=== PATIENT | female | born 1990 | race American Indian/Alaskan Native ===

== ENCOUNTER 2020-03-30 15:10 | Emergency (ER) | payer MEDICAID ==
[2020-03-30] MEDS ORDERED: LACTATED RINGERS 1,000 ML IV ONE (15:50)
--- NOTE | 2020-03-30 15:51 | Emergency Department Report ---
ED General Adult HPI - General Chief complaint: Anxiety Stated complaint: weak PUI?: No Time Seen by Provider: 03/30/20 15:40 Source: patient, EMS ( EMS documentation not available at time of chart dictation ), RN notes reviewed Mode of arrival: Stretcher Limitations: No Limitations - History of Present Illness Initial comments: The patient was evaluated in the emergency department for symptoms described in the history of present illness. He/she was evaluated in the context of the global COVID-19 pandemic, which necessitated consideration that the patient might be at risk for infection with the virus that causes COVID-19. Institutional protocols and algorithms that pertain to the evaluation of patients at risk for COVID-19 are in a state of rapid change based on information released by regulatory bodies including the CDC and federal and state organizations. These policies and algorithms were followed during the jazmín rico's care in the emergency department. Please note that these policies, procedures and recommendations changed on a rapid basis. During the history and physical examination, I am chaperoned by nurse Kavitha Bernal The patient is a 30-year-old female. She is not known to myself previously. She appears to have a history of obesity. Otherwise, she denies chronic medical conditions. She states that she is not , and that she has not delivered her given in the past 6 weeks. The patient is brought to the hospital today by emergency medical services. History obtained from the patient, as well as from paramedics, who supplied additional history. The patient herself states that she was "feeling fine", reports that she "got into an argument." As per game manager who is currently taking care of her, Patient reportedly got into an argument before arriving to the hospital, and th en appeared to have nontraumatic convulsive activity, may have had a few shots of alcohol, which lasted for a few seconds to half a minute, and was terminated with Ativan. The patient herself states that she does not have a history of seizure. The patient denies headache, neck pain, chest pain, abdominal pain, shortness of breath. The patient states that she is not homicidal suicidal. The patient states that she has not tried to overdose on anything. The patient states she has no urinary symptoms, that she does not have access to guns or to firearms, that she has a safe place to go home to. Her symptoms are basically resolved at this time, with the exception of mild anxiety. She denies leg pain, leg swelling, travel, surgery, oral contraceptive use. -: Sudden Consistency: now resolved Improves with: medication Worsens with: none Associated Symptoms: denies other symptoms - Related Data Allergies Allergy/AdvReac Type Severity Reaction Status Date / Time amoxicillin Allergy Rash Verified 03/30/20 15:28 ED Review of Systems ROS: Stated complaint: SEIZURE Other details as noted in HPI Constitutional: other (Denies loss of taste and smell). denies: fever Eyes: denies: eye discharge ENT: denies: epistaxis Respiratory: denies: cough, shortness of breath Cardiovascular: denies: chest pain, syncope Gastrointestinal: denies: abdominal pain, nausea, vomiting, constipation Genitourinary: denies: dysuria Musculoskeletal: denies: back pain Neurological: weakness (Global weakness). denies: headache Psychiatric: anxiety. denies: auditory hallucinations, visual hallucinations, homicidal thoughts, suicidal thoughts ED Past Medical Hx - Past Medical History Hx Hypertension: Yes (during ) - Surgical History Additional Surgical History: C sect x 2, cyst removal from arm - Social History Smoking Status: Never Smoker Substance Use Type: Alcohol ED Physical Exam - General Limitations: No Limitations General appearance: alert, anxious, obese - Head Head exam: Present: atraumatic, normocephalic - Eye Eye exam: Present: normal appearance, PERRL, EOMI, other (Visual acuity intact to finger counting, color perception, reading at a close distance). Absent: nystagmus - ENT ENT exam: Present: normal exam, normal orophraynx, mucous membranes moist, normal external ear exam - Neck Neck exam: Present: normal inspection, full ROM. Absent: tenderness, meningismus - Respiratory Respiratory exam: Present: normal lung sounds bilaterally. Absent: respiratory distress, wheezes, rales, rhonchi, stridor, decreased breath sounds - Cardiovascular Cardiovascular Exam: Present: regular rate, normal rhythm, normal heart sounds. Absent: bradycardia, tachycardia, irregular rhythm, systolic murmur, diastolic murmur, rubs, gallop - GI/Abdominal GI/Abdominal exam: Present: soft. Absent: distended, tenderness, guarding, rebound, rigid, pulsatile mass - Extremities Exam Extremities exam: Present: normal inspection, full ROM, other (2+ pulses noted in the bilateral upper and lower extremities. There is no palpable cord. negative Homans sign. Muscular compartments are soft. The pelvis is stable.). Absent: pedal edema, calf tenderness - Back Exam Back exam: Present: normal inspection, full ROM. Absent: tenderness, CVA tenderness (R), CVA tenderness (L), paraspinal tenderness, vertebral tenderness - Neurological Exam Neurological exam: Present: alert, oriented X3 (Able to and 4+4, subtract 200- 7), other (No facial droop. Tongue midline. Extraocular movements intact bilaterally. Facial sensation intact to light touch in V1, V2, V3 distribution bilaterally. 5 and a 5 strength in 4 extremities. Sensation intact to light touch in 4 extremities.). Absent: motor sensory deficit - Psychiatric Psychiatric exam: Present: anxious. Absent: homicidal ideation, suicidal ideation - Skin Skin exam: Present: warm, dry, intact, normal color. Absent: rash ED Course Vital Signs 03/30/20 03/30/20 15:28 18:01 Temperature 98.1 F 98.3 F Pulse Rate 109 H 92 H Respiratory 18 20 Rate Blood Pressure 130/88 Blood Pressure 132/82 [Left] O2 Sat by Pulse 97 98 Oximetry - Reevaluation(s) Reevaluation #1: 03/30/20 15:56 Differential diagnosis, included but not limited to: Seizure, pseudoseizure, conversion disorder, alcohol intoxication, electrolyte derangement, closed head injury Assessment and plan: 30-year-old female, who is currently afebrile, with reassuring vital signs, clinically sober, with a GCS of 15, no midline cervical spine pain, tenderness or step-offs, with complaint of "I am feeling fine", with prehospital history of possibly getting into an argument, and having a nonspecific convulsive event. Place patient on secured entrance monitor. Obtain EKG, appropriate laboratory studies. Repeat vital signs, and obtain EKG. Start IV fluids. Obtain CT scan of the brain. Reassess after initial data points. Patient is amenable to this plan of care. She denies urinary symptoms. She is not homicidal suicidal, she is alert and oriented, sober, and exhibits decision-making capacity at this time. Patient also states that she has a safe place to go home to, that she does not feel physically threatened, or verbally threatened Reevaluation #2: 03/30/20 18:05 Patient observed in this department for hours without clinical decompensation. Her tachycardia has resolved. Her objective laboratory testing is fairly unremarkable, has minimal elevation of blood alcohol level, but is clinically sober. Patient has friends/family coming by to pick her up. Noncontrast CT scan of the brain is negative for acute findings. Patient observed in this department for hours without acute event. Suitable to follow-up with an outpatient primary care doctor ED Medical Decision Making - Lab Data Result diagrams: 03/30/20 16:49 03/30/20 16:49 Vital Signs 03/30/20 15:28 Temperature 98.1 F Pulse Rate 109 H Respiratory 18 Rate Blood Pressure 130/88 O2 Sat by Pulse 97 Oximetry Lab Results 03/30/20 03/30/20 03/30/20 Range/Units 16:49 16:49 16:49 Hgb 14.6 H (10.1-14.3) gm/dl Hct 41.6 (30.3-42.9) % Plt Count 290 (140-440) K/mm3 Sodium 138 (137-145) mmol/L Potassium 4.1 (3.6-5.0) mmol/L Chloride 100.9 (98-107) mmol/L Carbon Dioxide 25 (22-30) mmol/L Anion Gap 16 mmol/L BUN 4 L (7-17) mg/dL Creatinine 0.6 (0.6-1.2) mg/dL Estimated GFR > 60 ml/min BUN/Creatinine Ratio 7 % Glucose 82 (65-100) mg/dL Calcium 9.4 (8.4-10.2) mg/dL Magnesium 2.10 (1.7-2.3) mg/dL Total Creatine Kinase 90 (30-135) units/L TSH 0.713 (0.270-4.200) mlU/mL HCG, Quant (0-4) mIU/mL Salicylates (2.8-20.0) mg/dL Acetaminophen (10.0-30.0) ug/mL Plasma/Serum Alcohol (0-0.07) % 03/30/20 03/30/20 03/30/20 Range/Units 16:49 16:49 16:49 Hgb (10.1-14.3) gm/dl Hct (30.3-42.9) % Plt Count (140-440) K/mm3 Sodium (137-145) mmol/L Potassium (3.6-5.0) mmol/L Chloride (98-107) mmol/L Carbon Dioxide (22-30) mmol/L Anion Gap mmol/L BUN (7-17) mg/dL Creatinine (0.6-1.2) mg/dL Estimated GFR ml/min BUN/Creatinine Ratio % Glucose (65-100) mg/dL Calcium (8.4-10.2) mg/dL Magnesium (1.7-2.3) mg/dL Total Creatine Kinase (30-135) units/L TSH (0.270-4.200) mlU/mL HCG, Quant < 2 (0-4) mIU/mL Salicylates < 0.3 L (2.8-20.0) mg/dL Acetaminophen 5.0 L (10.0-30.0) ug/mL Plasma/Serum Alcohol (0-0.07) % 03/30/20 Range/Units 16:49 Hgb (10.1-14.3) gm/dl Hct (30.3-42.9) % Plt Count (140-440) K/mm3 Sodium (137-145) mmol/L Potassium (3.6-5.0) mmol/L Chloride (98-107) mmol/L Carbon Dioxide (22-30) mmol/L Anion Gap mmol/L BUN (7-17) mg/dL Creatinine (0.6-1.2) mg/dL Estimated GFR ml/min BUN/Creatinine Ratio % Glucose (65-100) mg/dL Calcium (8.4-10.2) mg/dL Magnesium (1.7-2.3) mg/dL Total Creatine Kinase (30-135) units/L TSH (0.270-4.200) mlU/mL HCG, Quant (0-4) mIU/mL Salicylates (2.8-20.0) mg/dL Acetaminophen (10.0-30.0) ug/mL Plasma/Serum Alcohol 0.11 H (0-0.07) % Vital Signs 03/30/20 03/30/20 15:28 18:01 Temperature 98.1 F 98.3 F Pulse Rate 109 H 92 H Respiratory 18 20 Rate Blood Pressure 130/88 Blood Pressure 132/82 [Left] O2 Sat by Pulse 97 98 Oximetry - EKG Data -: EKG Interpreted by Ca EKG shows normal: sinus rhythm Rate: tachycardia - EKG Data When compared to previous EKG there are: previous EKG unavailable 03/30/20 17:00 Sinus rhythm, tachycardia, 104 bpm. QTC prolonged, 481 ms. Q waves noted in 1 and aVL. There is minimal motion artifact. This is an abnormal EKG. This is not a STEMI. - Radiology Data Radiology results: pending, report reviewed, image reviewed Noncontrast CT scan of the brain is negative for acute finding Critical care attestation.: If time is entered above; I have spent that time in minutes in the direct care of this critically ill patient, excluding procedure time. ED Disposition Clinical Impression: History of convulsions, General medical exam, Alcohol use Disposition: - TO HOME OR SELFCARE Is pt being admited?: No Does the pt Need Aspirin: No Condition: Good Additional Instructions: Recommend that patient not drive or operate motor vehicles for the next 6 months, or until cleared to do so by her primary care doctor or neurologist. We recommend follow-up with a primary care doctor or neurologist within the next 3 to 5 days. Recommend that patient avoid consumption of alcohol, and recreational drug/smoke products. Recommend that patient take a multivitamin daily [id number]. Please return to the emergency room right away with new pain, worsening pain, migration of pain, projectile vomiting, change in mental status, confusion, inability to tolerate liquid feeds, new, worsened or different symptoms not p resent on the initial emergency room evaluation. Dr. Matthews is a local primary care doctor. Local neurology specialists include the following physicians: Aspen Ferguson Referrals: ADRIEN MATTHEWS MD [Staff Physician] - 3-5 Days GENTRY DICKSON MD [Staff Physician] - 3-5 Days MICHAEL JENSEN MD [Referring] - 3-5 Days
--- NOTE | 2020-03-30 16:42 | Cat Scan Report ---
NONENHANCED CT SCAN OF THE HEAD: INDICATION / CLINICAL INFORMATION: 30 years Female; convulsion. TECHNIQUE: Routine CT head without contrast. All CT scans at this location are performed using CT dos e reduction for ALARA by means of automated exposure control. COMPARISON: None. FINDINGS: BRAIN / INTRACRANIAL CONTENTS: No acute hemorrhage, mass effect, midline shift, hydrocephalus, or acu te, large territorial infarct. No chronic infarct are encephalomalacia; conflicting dates, moderate v olume loss in the frontal and parietal convexity and in the cerebellar vermis; mammillary bodies not seen; Temporal lobes normal; hippocampi normal CRANIOCERVICAL JUNCTION: No significant abnormality. ORBITS: No significant abnormality of visualized orbits. SINUSES / MASTOIDS: No significant abnormality of the visualized paranasal sinuses or mastoid air georges ls. ADDITIONAL FINDINGS: None. IMPRESSION: No focal mass, hemorrhage, hydrocephalus, or acute, large territorial infarct. Signer Name: Brianna Cuadra MD Signed: 03/30/2020 4:38 PM Workstation Name: [id number]
[2020-03-30 17:05] LABS: Hematocrit 41.6 % (30.3-42.9); Hemoglobin 14.6 gm/dl (10.1-14.3)
[2020-03-30 17:28] LABS: Blood Urea Nitrogen 4 mg/dL (7-17); Calcium 9.4 mg/dL (8.4-10.2); Hemolysis Index 3
[2020-03-30 17:29] LABS: BUN/Creatinine Ratio 7
[2020-03-30 18:23] VITALS: BP 140/87
== END 2020-03-30 18:23 | disposition home or self-care (01) ==
LOC: ED 15:10
DX: R56.9 Unspecified convulsions (principal); Z72.89 Other problems related to lifestyle; Z00.00 Encounter for general adult medical examination without abnormal findings; I10 Essential (primary) hypertension; Z98.890 Other specified postprocedural states; Z88.1 Allergy status to other antibiotic agents
CPT/HCPCS: 36415; 70450; 80048; 80320; 82550; 83735; 84443; 84702; 85014; 85018; 85049; 93005; 96360; 96361; G0480

== ENCOUNTER 2020-04-26 14:45 | Emergency (ER) | payer MEDICAID ==
[2020-04-26 15:43] LABS: Basophils % (Auto) 0.4 % (0.0-1.8); Hematocrit 36.2 % (30.3-42.9); Hemoglobin 12.8 gm/dl (10.1-14.3); Lymphocytes # (Auto) 0.6 K/mm3 (1.2-5.4); Mean Corpuscular HGB Conc 35 % (30-34); Mean Corpuscular Volume 94 fl (79-97); Monocytes # (Auto) 0.5 K/mm3 (0.0-0.8); Monocytes % (Auto) 8.8 % (0.0-7.3); Platelet Count 202 K/mm3 (140-440); Red Blood Count 3.84 M/mm3 (3.65-5.03); Red Cell Distribution Width 12.7 % (13.2-15.2)
[2020-04-26] MEDS ORDERED: ACETAMINOPHEN 500 MG TAB PO ONE (15:47)
[2020-04-26] MEDS ORDERED: SODIUM CHLORIDE 0.9% 1000 ML 1,000 ML IV ONE (15:47)
[2020-04-26] MEDS ORDERED: MORPHINE 2 MG/1 ML INJ IV ONE (15:47)
[2020-04-26 16:01] LABS: Alanine Aminotransferase 9 units/L (7-56); Albumin 4.2 g/dL (3.9-5); Blood Urea Nitrogen 5 mg/dL (7-17); Calcium 8.5 mg/dL (8.4-10.2); Hemolysis Index 19
[2020-04-26 16:06] LABS: BUN/Creatinine Ratio 7
--- NOTE | 2020-04-26 16:07 | XRay Report ---
CHEST 2 VIEWS INDICATION / CLINICAL INFORMATION: shortness of breath. COMPARISON: None available. FINDINGS: SUPPORT DEVICES: None. HEART / MEDIASTINUM: No significant abnormality. LUNGS / PLEURA: No significant pulmonary or pleural abnormality. No pneumothorax. ADDITIONAL FINDINGS: No significant additional findings. IMPRESSION: 1. No acute findings. Signer Name: Negrito Rahman MD Signed: 04/26/2020 4:02 PM Workstation Name: [id number]
--- NOTE | 2020-04-26 17:12 | Cat Scan Report ---
CTA CHEST WITH CONTRAST INDICATION / CLINICAL INFORMATION: Back pain. TECHNIQUE: Axial CT images were obtained through the chest after injection of IV contrast. 3 plane [place] P and/or 3D reconstructions were produced. All CT scans at this location are performed using CT dose reduction for ALARA by means of automated exposure control. COMPARISON: None available. FINDINGS: PULMONARY ARTERIES: No central or segmental pulmonary embolus. THORACIC AORTA: No significant abnormality. HEART: No significant abnormality. ADENOPATHY: No significant adenopathy. LUNGS/PLEURA: No focal airspace consolidation. No pleural effusion. No pneumothorax. ADDITIONAL FINDINGS: None. UPPER ABDOMEN: Cholelithiasis and/or sludge. No evidence of cholecystitis. There are no acute finding s of the upper abdomen. SKELETAL STRUCTURES: No significant osseous abnormality. IMPRESSION: No acute findings in the chest. No evidence of pulmonary embolus. Signer Name: Brian Glez MD Signed: 04/26/2020 5:07 PM Workstation Name: [id number]
--- NOTE | 2020-04-26 17:27 | Emergency Department Report ---
- General Chief Complaint: Dyspnea/Respdistress Stated Complaint: BACK PAIN Time Seen by Provider: 04/26/20 15:41 Source: patient Mode of arrival: Ambulatory Limitations: No Limitations - History of Present Illness Initial Comments: This is a 30-year-old female nontoxic, well nourished in appearance, no acute signs of distress presents to the ED with c/o of productive cough, fever, chills, body aches, mid back pain, shortness of breath, rhinorrhea, nasal congestion x several days. Back worse with cough but resolved with rest. Patient describes productive cough as yellow mucus production. Patient denies any sick contact. Patient denies any recent travels, long car, recent hospital stays. Patient denies any calf pain or calf tenderness. Patient denies any chest pain, nausea, vomiting, hemoptysis, numbness, tingling, headache or stiff neck. Patient stated allergies amoxicillin. Denies any significant past medical history. MD Complaint: fever, cough, rhinorrhea, nasal congestion -: days(s) Severity: mild Severity scale (0 -10): 0 Consistency: constant Improves With: rest Worsens With: activity, deep breaths Associated Symptoms: fever, chills, rhinorrhea, nasal congestion, cough, shortness of breath. denies: myalgias, diaphoresis, headache, sore throat, stiff neck, chest pain, abdominal pain, nausea, vomiting, diarrhea, dysuria, rash, right sweats, weight loss, epistaxis, hoarseness, ear pain Treatments Prior to Arrival: none - Related Data Previous Rx's Medication Instructions Recorded Last Taken Type Acetaminophen [Acetaminophen 8 650 mg PO Q8H PRN #20 tablet.er 04/26/20 Unknown Rx Hour] Azithromycin [Zithromax Z-OPAL] 250 mg PO DAILY #6 tablet 04/26/20 Unknown Rx Benzonatate [Tessalon Perles] 100 mg PO Q8HR PRN #12 capsule 04/26/20 Unknown Rx Allergies Allergy/AdvReac Type Severity Reaction Status Date / Time amoxicillin Allergy Rash Verified 03/30/20 15:28 ED Review of Systems ROS: Stated complaint: BACK PAIN Other details as noted in HPI Comment: All other systems reviewed and negative Constitutional: chills, fever Eyes: denies: eye pain, eye discharge, vision change ENT: congestion. denies: ear pain, throat pain Respiratory: cough, shortness of breath. denies: wheezing Cardiovascular: denies: chest pain, palpitations Endocrine: no symptoms reported Gastrointestinal: denies: abdominal pain, nausea, diarrhea Genitourinary: denies: urgency, dysuria, discharge Musculoskeletal: back pain. denies: joint swelling, arthralgia Skin: denies: rash, lesions Neurological: denies: headache, weakness, paresthesias Psychiatric: denies: anxiety, depression Hematological/Lymphatic: denies: easy bleeding, easy bruising ED Past Medical Hx - Past Medical History Previous Medical History?: Yes Hx Hypertension: Yes (during ) - Surgical History Past Surgical History?: Yes Additional Surgical History: C sect x 2, cyst removal from arm - Social History Smoking Status: Never Smoker Substance Use Type: Alcohol - Medications Home Medications: Home Medications Medication Instructions Recorded Confirmed Last Taken Type Acetaminophen [Acetaminophen 8 650 mg PO Q8H PRN #20 tablet.er 04/26/20 Unknown Rx Hour] Azithromycin [Zithromax Z-OPAL] 250 mg PO DAILY #6 tablet 04/26/20 Unknown Rx Benzonatate [Tessalon Perles] 100 mg PO Q8HR PRN #12 capsule 04/26/20 Unknown Rx ED Physical Exam - General Limitations: No Limitations General appearance: alert, in no apparent distress - Head Head exam: Present: atraumatic, normocephalic - Eye Eye exam: Present: normal appearance - ENT ENT exam: Present: normal exam, normal orophraynx - Neck Neck exam: Present: normal inspection, full ROM. Absent: tenderness, meningismus, lymphadenopathy - Respiratory Respiratory exam: Present: normal lung sounds bilaterally. Absent: respiratory distress, wheezes, rales, rhonchi, stridor, chest wall tenderness, accessory muscle use, decreased breath sounds, prolonged expiratory - Cardiovascular Cardiovascular Exam: Present: regular rate, normal rhythm, tachycardia, normal heart sounds. Absent: bradycardia, irregular rhythm, systolic murmur, diastolic murmur, rubs, gallop - GI/Abdominal GI/Abdominal exam: Present: soft, normal bowel sounds. Absent: distended, tenderness, guarding, rebound, rigid, diminished bowel sounds - Extremities Exam Extremities exam: Present: normal inspection, full ROM - Back Exam Back exam: Present: normal inspection, full ROM. Absent: tenderness, CVA tenderness (R), CVA tenderness (L), muscle spasm, paraspinal tenderness, vertebral tenderness, rash noted - Neurological Exam Neurological exam: Present: alert, oriented X3, normal gait - Psychiatric Psychiatric exam: Present: normal affect, normal mood - Skin Skin exam: Present: warm, dry, intact, normal color. Absent: rash ED Course Vital Signs 04/26/20 04/26/20 04/26/20 15:11 16:11 16:15 Temperature 100.3 F H Pulse Rate 116 H Respiratory 22 18 18 Rate Blood Pressure 133/78 [Right] O2 Sat by Pulse 100 Oximetry 04/26/20 04/26/20 04/26/20 16:45 17:11 17:44 Temperature Pulse Rate Respiratory 18 18 18 Rate Blood Pressure [Right] O2 Sat by Pulse 100 Oximetry 04/26/20 18:33 Temperature 98.2 F Pulse Rate 86 Respiratory 18 Rate Blood Pressure 119/77 [Right] O2 Sat by Pulse 100 Oximetry - Reevaluation(s) Reevaluation #1: 04/26/20 17:24 Patient is speaking in full sentences with no signs of distress noted. ED Medical Decision Making - Lab Data Result diagrams: 04/26/20 15:30 04/26/20 15:30 - EKG Data 04/26/20 18:13 Normal sinus rhythm at [address] or T wave abnormalities. Reviewed and signed by . - Radiology Data CTA CHEST WITH CONTRAST INDICATION / CLINICAL INFORMATION: Back pain. TECHNIQUE: Axial CT images were obtained through the chest after injection of IV contrast. 3 plane MIP and/or 3D reconstructions were produced. All CT scans at this location are performed using CT dose reduction for ALARA by means of automated exposure control. COMPARISON: None available. FINDINGS: PULMONARY ARTERIES: No central or segmental pulmonary embolus. THORACIC AORTA: No significant abnormality. HEART: No significant abnormality. ADENOPATHY: No significant adenopathy. LUNGS/PLEURA: No focal airspace consolidation. No pleural effusion. No pneumothorax. ADDITIONAL FINDINGS: None. UPPER ABDOMEN: Cholelithiasis and/or sludge. No evidence of cholecystitis. There are no acute findings of the upper abdomen. SKELETAL STRUCTURES: No significant osseous abnormality. IMPRESSION: No acute findings in the chest. No evidence of pulmonary embolus. Signer Name: Brian Glez MD Signed: 04/26/2020 4:07 PM Workstation Name: [id number] CHEST 2 VIEWS INDICATION / CLINICAL INFORMATION: shortness of breath. COMPARISON: None available. FINDINGS: SUPPORT DEVICES: None. HEART / MEDIASTINUM: No significant abnormality. LUNGS / PLEURA: No significant pulmonary or pleural abnormality. No pneumothorax. ADDITIONAL FINDINGS: No significant additional findings. IMPRESSION: 1. No acute findings. Signer Name: Negrito Rahman MD Signed: 04/26/2020 3:02 PM Workstation Name: [id number]- [id number] - Medical Decision Making This is a 30-year-old female that presents with suspected Covid. Patient is stable and was examined by me. Chest x-ray has been obtained and dictated by radiologist with normal exam. Patient is notified of x-ray results with no questions noted. Patient does meet clinical concerns of COVID-19 and patient was instructed and educated on signs and symptoms and to self quarantine and seek medical attention as soon as possible if symptoms worsen and continue. Patient has been ambulate with no significant changes in pulse ox and above 97%. Due to patient having symptoms of upper respiratory infection and worsening I will treat patient empirically with zpak. Patient was given IV resuscitation in the ER. Patient stated she feels much better and pain significantly decreased. Patient was instructed to increase hydration, rest and take Tylenol for fever episodes. Vitals stable. Patient is nonfebrile and normal heart rate. Patient was instructed Follow-up with a primary care doctor in 3-5 days or if symptoms worsen and continue return to emergency room as soon as possible. At time time of discharge, the patient does not seem toxic or ill in appearance. No acute signs of distress noted. Patient agrees to discharge treatment plan of care. No further questions noted by the patient.nt. - Differential Diagnosis PE, COVID, PNA, STEMI, brochnitis Critical care attestation.: If time is entered above; I have spent that time in minutes in the direct care of this critically ill patient, excluding procedure time. ED Disposition Clinical Impression: Suspected COVID-19 virus infection Cholelithiasis Qualifiers: Cholelithiasis location: gallbladder Cholecystitis presence: without cholecystitis Biliary obstruction: without biliary obstruction Qualified Code(s): K80.20 - Calculus of gallbladder without cholecystitis without obstruction Disposition: - TO HOME OR SELFCARE Is pt being admited?: No Does the pt Need Aspirin: No Condition: Stable Instructions: COVID-19 Frequently Asked Questions, COVID-19 Additional Instructions: Follow-up with a primary care doctor in 3-5 days or if symptoms worsen and continue return to emergency room as soon as possible. As educated and instructed to you must self quarantine yourself and people that you have been in close contact with similar symptoms for the next 14 days. Please see your nearest health department or primary care doctor that you are referred to for COVID testing. Increased rest, hydration, and take Tylenol as prescribed for fever episode. Prescriptions: Acetaminophen [Acetaminophen 8 Hour] 650 mg PO Q8H PRN #20 tablet.er PRN Reason: Pain , Severe (7-10) Benzonatate [Tessalon Perles] 100 mg PO Q8HR PRN #12 capsule PRN Reason: Cough Azithromycin [Zithromax Z-OPAL] 250 mg PO DAILY #6 tablet Referrals: PRIMARY CAREMD [Primary Care Provider] - 3-5 Days REMIGIO GAUTHIER MD [Staff Physician] - 3-5 Days Forms: Work/School Release Form(ED) Time of Disposition: 18:34
[2020-04-26 18:16] LABS: Bilirubin,Urine NEG (Negative); Blood,Urine NEG (Negative); Color,Urine Straw (Yellow); Protein,Urine <15 mg/dL mg/dL (Negative); Urobilinogen,Urine < 2.0 mg/dL (<2.0); WBC,Urine < 1.0 /HPF (0.0-6.0)
[2020-04-26 18:34] VITALS: BP 119/77
== END 2020-04-26 18:49 | disposition home or self-care (01) ==
LOC: ED 14:45
DX: K80.20 Calculus of gallbladder without cholecystitis without obstruction (principal); Z20.822 Contact with and (suspected) exposure to COVID-19; I10 Essential (primary) hypertension; Z98.890 Other specified postprocedural states; Z79.2 Long term (current) use of antibiotics; Z79.899 Other long term (current) drug therapy; Z88.8 Allergy status to other drugs, medicaments and biological substances
CPT/HCPCS: 36415; 71046; 71275; 80053; 81001; 82140; 84484; 84703; 85025; 87040; 93005; 96361; 96374; 99284; J2270; J7030; Q9967

== ENCOUNTER 2021-07-14 02:27 | Emergency (ER) | payer MEDICAID ==
[2021-07-14 02:30] VITALS: BP 144/96
== END 2021-07-14 10:31 | disposition left against medical advice (07) ==
LOC: ED 02:27
DX: R05.9 Cough, unspecified (principal); R11.2 Nausea with vomiting, unspecified; R04.0 Epistaxis; Z53.21 Procedure and treatment not carried out due to patient leaving prior to being seen by health care provider